=== PATIENT | female | born 1940 | race Caucasian/White ===

== ENCOUNTER 2022-09-21 15:00 | Emergency (ER) | payer OTHER ==
[~2022-09-21] VITALS: Ht 152.4 cm; Wt 77.1 kg
[2022-09-21 15:13] VITALS: BP_SYST 135
[2022-09-21] MEDS ORDERED: DICL100G33 TP (17:56)
[2022-09-21] MEDS ORDERED: AUG875 PO (17:58)
[2022-09-21 18:33] VITALS: BP_SYST 135
== END 2022-09-21 18:33 | disposition home or self-care (01) ==
LOC: SED 15:00
DX: S02.40CA Maxillary fracture, right side, initial encounter for closed fracture (principal); S20.211A Contusion of right front wall of thorax, initial encounter; Z88.5 Allergy status to narcotic agent; Z88.8 Allergy status to other drugs, medicaments and biological substances; Z79.899 Other long term (current) drug therapy; W18.39XA Other fall on same level, initial encounter; Y93.89 Activity, other specified; Y92.89 Other specified places as the place of occurrence of the external cause; Y99.8 Other external cause status
CPT/HCPCS: 70450-TC; 70486-TC; 71100; 76376; 99284

== ENCOUNTER 2023-02-17 10:49 | Emergency (ER) | payer OTHER ==
[~2023-02-17] VITALS: Ht 162.6 cm; Wt 74.8 kg
[~2023-02-17 10:49] MED LIST: AUG875 PO; DICL100G33 TP
[2023-02-17 10:50] VITALS: BP_SYST 148
[2023-02-17 11:25] LABS: BASOPHILS % (AUTO) 0.4 % (0.0-2.0); EOSINOPHILS # (AUTO) 0.1 K/uL (0.0-0.4); EOSINOPHILS % (AUTO) 0.6 % (0.0-4.0); HEMATOCRIT 32.6 % (36-48); HEMOGLOBIN 10.5 g/dL (12.0-16.0); LYMPHOCYTES # (AUTO) 1.7 K/uL (1.0-5.5); LYMPHOCYTES % (AUTO) 14.2 % (20.5-51.5); MEAN CORPUSCULAR HEMOGLOBIN 25 pg (27-31); MEAN CORPUSCULAR HGB CONC 32 % (32-36); MEAN CORPUSCULAR VOLUME 77 fL (79.0-98.0); MONOCYTES # (AUTO) 0.9 K/uL (0.0-1.0); MONOCYTES % (AUTO) 7.5 % (1.7-9.3); NEUTROPHILS # (AUTO) 9.1 K/uL (1.8-7.7); NEUTROPHILS % (AUTO) 77.3 % (40.0-70.0); PLATELET COUNT (AUTO) 349 K/uL (130-430); RED BLOOD CELL COUNT(AUTO) 4.23 MIL/uL (4.2-6.2); RED CELL DISTRIBUTION WIDTH 17.8 % (9.0-15.0); WHITE BLOOD COUNT (AUTO) 11.7 K/uL (4.8-10.8)
[2023-02-17 11:38] LABS: ANION GAP 9 (5-15); CALCIUM 8.6 mg/dL (8.4-11.0); CHLORIDE 106 mmol/L (98-107); CREATININE 0.74 mg/dL (0.55-1.30); GLUCOSE 133 mg/dL (70-99); UREA NITROGEN, BLOOD 13 mg/dL (8-21)
[2023-02-17 11:46] LABS: ALANINE AMINOTRANSFERASE 14 U/L (12-78); ASPARTATE AMINOTRANSFERASE 11 U/L (10-37); TOTAL BILIRUBIN 0.4 mg/dL (0.0-1.0)
[2023-02-17] MEDS ORDERED: MORPHINE 2 MG/ML INJ. SYRINGE IM ONE (13:15)
[2023-02-17] MEDS ORDERED: TRAM50TA2 PO (13:18)
[2023-02-17] MEDS ORDERED: IBUP-1969 PO (13:18)
[2023-02-17 14:05] VITALS: BP_SYST 148
== END 2023-02-17 14:06 | disposition home or self-care (01) ==
LOC: SED 10:49
DX: S82.892A Other fracture of left lower leg, initial encounter for closed fracture (principal); Z88.6 Allergy status to analgesic agent; Z88.8 Allergy status to other drugs, medicaments and biological substances; Z79.899 Other long term (current) drug therapy; W18.40XA Slipping, tripping and stumbling without falling, unspecified, initial encounter; Y93.89 Activity, other specified; Y92.89 Other specified places as the place of occurrence of the external cause; Y99.8 Other external cause status
CPT/HCPCS: 99285; 29515; 70450; 71045; 80053; 82550; 85025; 84484; 36415; 93005; 73600; 73620; 76376; 83605; J2270

== ENCOUNTER 2023-04-24 13:29 | Emergency (ER) | payer OTHER ==
[~2023-04-24] VITALS: Ht 162.6 cm; Wt 74.8 kg
[~2023-04-24 13:29] MED LIST changes: +IBUP-1969 PO; +TRAM50TA2 PO
[2023-04-24 13:40] VITALS: BP_SYST 133; PULSE 85; RESP 18; TEMP 98.3; O2SAT 98
--- NOTE | 2023-04-24 14:06 | NUR ---
Pt brought by family,arrived on w/c , A&Ox4, pt presents to ER with R knee, R elbow pain, pt hit head , no KO , takes aspirin, skin pink and warm, cap refill <3, VSS
--- NOTE | 2023-04-24 14:45 | NUR ---
ER at bedside examining patient.
[2023-04-24] MEDS ORDERED: ACETAMINOPHEN 325 MG TABLET PO ONE (15:00)
--- NOTE | 2023-04-24 15:30 | NUR ---
Patient to ER bed 04 to gown for evaluation. Side rails up.
[2023-04-24] MEDS ORDERED: IBUP-1971 PO (16:06)
[2023-04-24] MEDS ORDERED: IBUPROFEN 800 MG TABLET PO ONE (16:30)
== END 2023-04-24 16:25 | disposition home or self-care (01) ==
LOC: SED 13:29
DX: S52.134A Nondisplaced fracture of neck of right radius, initial encounter for closed fracture (principal); Z88.5 Allergy status to narcotic agent; Z88.6 Allergy status to analgesic agent; Z79.899 Other long term (current) drug therapy; W01.0XXA Fall on same level from slipping, tripping and stumbling without subsequent striking against object, initial encounter; Y93.89 Activity, other specified; Y92.89 Other specified places as the place of occurrence of the external cause; Y99.8 Other external cause status
CPT/HCPCS: 70450-TC; 73030; 73060-TC; 73564; 76376; 99284